=== PATIENT | female | born 1940 | race Caucasian/White ===

== ENCOUNTER 2017-04-05 11:25 | Inpatient (IN) ==
--- NOTE | 2017-04-05 13:10 | Emergency Department Note ---
Disposition Clinical Impression: Fall Qualifiers: Encounter type: initial encounter Qualified Code(s): W19.XXXA - Unspecified fall, initial encounter Closed head injury Qualifiers: Encounter type: initial encounter Qualified Code(s): S09.90XA - Unspecified injury of head, initial encounter Shoulder fracture, right Qualifiers: Encounter type: initial encounter Fracture type: closed Qualified Code(s): S42.91XA - Fracture of right shoulder girdle, part unspecified, initial encounter for closed fracture Patella fracture Qualifiers: Encounter type: initial encounter Fracture type: closed Fracture morphology: comminuted Fracture alignment: displaced Laterality: right Qualified Code(s): S82.041A - Displaced comminuted fracture of right patella, initial encounter for closed fracture Disposition: Admitted As Inpatient Condition: Fair Forms: ED Satisfaction Letter Time of Disposition: 15:23 General Adult HPI - General Chief complaint: ED Extremity Injury, Upper Stated complaint: R arm pain Time Seen by Provider: 04/05/17 12:37 Source: patient, EMS Mode of arrival: ambulatory Limitations: no limitations Nursing Notes Reviewed: Yes Vital Signs Reviewed: Yes - History of Present Illness HPI Narrative: 76-year-old female presents emergency room after falling while getting out of her car today. Patient was walking on the property at the hospital in the lower own feet falling sideways hitting her right knee and right hip rotation. She has pain in those areas at this time. She also had her head denies a loss of consciousness and is not on any blood thinners. No other preceding her prodromal symptoms noted at this point. Patient is otherwise stable on presentation. 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 Location: head, right, upper extremity, lower extremity Radiation: non-radiation Pain Severity: moderate Pain Scale: 5 Quality: aching Consistency: constant Improves with: rest Worsens with: movement Associated symptoms: Reports: denies other symptoms Treatments Prior to Arrival: none - Related Data Home Medications Medication Instructions Recorded Confirmed Meloxicam [Mobic] 7.5 mg PO BID 09/04/15 09/04/15 Atorvastatin [Lipitor] 40 mg PO HS 04/05/17 04/05/17 BuPROPion [Wellbutrin] 75 mg PO BID 04/05/17 04/05/17 Metoprolol [Lopressor] 50 mg PO BID 04/05/17 04/05/17 Sertraline [Zoloft] 100 mg PO DAILY 04/05/17 04/05/17 Allergies Allergy/AdvReac Type Severity Reaction Status Date / Time No Known Allergies Allergy Verified 01/04/15 11:28 All systems ED: reviewed and negative except as stated. Review of Systems: As Per HPI Constitutional: Denies: fever, chills Cardiovascular: Denies: chest pain, palpitations, dyspnea on exertion Respiratory: Denies: dyspnea, wheezes Gastrointestinal: Denies: nausea, vomiting, diarrhea Genitourinary: Denies: urgency, dysuria, frequency Musculoskeletal: Denies: back pain, neck pain Neurological: Denies: headache Endocrine: Denies: fatigue Past Medical History - Past Medical History Attestation: Yes The following information was validated with the patient. Source: patient Medical history: Reports: cancer, CVA, hypertension, migraine Surgical history: Reports: breast surgery (Right mastectomy with right axillary node dissection in 2000), orthopedic, other (Right wrist), thyroidectomy ( Thyroid tumor removed) Psychiatric history: Reports: depression - Social History Smoking Status: Never smoker Smokeless Tobacco Status: No Alcohol use: Reports: none Drug use: Reports: none Physical Exam - General Limitations: no limitations General appearance: alert, in no apparent distress - Head Head exam: normocephalic, normal inspection - Eye Eye exam: Present: PERRL, EOMI, periorbital swelling. Absent: scleral icterus, conjunctival injection, nystagmus, miosis, mydriasis, periorbital tenderness - ENT ENT exam: normal exam, normal oropharynx, mucous membranes moist - Neck Neck exam: Present: normal inspection, full ROM, trachea midline - Chest Chest inspection: Present: normal inspection, symmetric chest wall rise. Absent : tenderness - Respiratory Respiratory exam: Present: normal lung sounds bilaterally - Cardiovascular Cardiovascular exam: Present: regular rate, normal rhythm, normal heart sounds - Abdominal Exam Abdominal exam: Present: soft, Non-Tender. Absent: tenderness, distention, guarding, rebound, rigidity, Walton's sign, Rovsing's sign, tenderness at McBurney's Point - Extremities Exam Extremities exam: Present: normal inspection, full ROM, normal capillary refill. Absent: tenderness - Back Exam Back exam: Present: normal inspection, full ROM. Absent: tenderness - Neurological Exam Neurological exam: Present: alert, oriented X3, CN II-XII intact, normal gait - Skin Skin exam: Present: warm, dry, intact, normal color Course Course Narrative: Patient seen and examined the time of arrival. See history of present illness. 76-year-old female presents with a mechanical fall. She was walking from her car to the cancer Center at the hospital parking lot tones. Patient tripped over a curb and fell sideways hitting her right knee her right hip her right elbow and right shoulder. She also hit the right side of her head. Currently she does not take any blood thinners. Denies any loss of consciousness. She does not have any pain in the cervical thoracic or lumbar spine. Just range of motion the left upper extremity and left lower extremities. She has pain with movement of the right knee otherwise she has full range of motion of the ankle and no palpable pain with palpation of the hip and pelvis. Her lungs are clear heart is regular. Abdomen is soft no guarding or rigidity. Pelvis is stable. He does have swelling but no gross deformity. She has normal neural motor function distally. Pulses are intact. Patient also has what appears to be tenderness over the right shoulder and elbow. The forearm and wrist do not appear to be involved. She has normal function of the fingers and normal sensation and good capillary refill. Imaging of the head and cervical spine view ordered by CT scan. Pain medication to be provided by mouth as needed. Patient will have her tetanus updated. She will also have plain films of the chest and pelvis along with the right shoulder and right elbow and right knee. Patient is interested in speaking full sentences. Disposition pending treatment course - Reevaluation(s) Reevaluation #1: Patient found to have a subcapital her right humerus fracture along with a patella fracture. No other visible signs of traumatic individual scans imaging. Pancreas orthopedics consult at this time Time: 15:21 Reevaluation #2: Patient discussed with the hospitalist. No other concerns or issues noted. Patient will be admitted for definitive management Time: 17:33 Vital Signs Temperature 97.7 F 04/05/17 11:27 Pulse Rate 52 04/05/17 11:27 Respiratory Rate 17 04/05/17 11:27 Blood Pressure 163/74 04/05/17 11:27 O2 Sat by Pulse Oximetry 95 04/05/17 11:27 Temperature 97.7 F 04/05/17 11:27 Pulse Rate 52 04/05/17 17:25 Respiratory Rate 18 04/05/17 17:25 Blood Pressure 148/70 04/05/17 17:25 O2 Sat by Pulse Oximetry 99 04/05/17 17:25 Oxygen Delivery Oxygen Delivery Room Air Medical Decision Making - MDM Narrative Medical decision making narrative: Mechanical fall, right shoulder injury, closed head injury, knee pain - Medical Records Medical records reviewed: Yes I reviewed the patient's medical records. - Lab Data Lab results reviewed: Yes I reviewed the patient's lab results. Result diagrams: 04/05/17 15:51 04/05/17 15:32 Lab Results 04/05/17 04/05/17 04/05/17 Range/Units 15:32 15:32 15:51 WBC 9.9 (4.3-11.1) K/mcL RBC 4.53 (3.82-4.97) M/mcL Hgb 12.7 (11.5-15.4) g/dL Hct 40.0 (35.3-44.9) % MCV 88.3 (83.0-100.0) fL MCH 28.0 (28.0-33.3) pg MCHC 31.8 (31.6-35.5) g/dL RDW 14.7 H (11.5-14.5) % Plt Count 119 L (140-400) K/mcL MPV 12.5 H (9.4-12.4) fL Immature Gran % 0.2 (0-4) % Seg Neutrophils % 79.0 % Lymphocytes % 14.0 % Monocytes % 5.5 % Eosinophils % 1.1 % Basophils % 0.2 % Neutrophils # 7.8 (1.6-8.9) K/mcL Lymphocytes # 1.4 (0.6-4.6) K/mcL Monocytes # 0.5 (0.0-1.3) K/mcL Eosinophils # 0.1 (0.0-0.6) K/mcL Basophils # 0.0 (0.0-0.2) K/mcL PT 10.4 (9.4-12.1) Seconds INR 1.0 APTT 18.5 L (26.0-36.0) Seconds Sodium 139 (136-145) mEq/L Potassium 3.8 (3.5-5.1) mEq/L Chloride 109 H (98-107) mEq/L Carbon Dioxide 22 L (23-29) mEq/L BUN 23 (8-23) mg/dL Creatinine 0.63 (0.60-1.20) mg/dL Est GFR ( Amer) > 60 (> 60) Est GFR (Non-Af Amer) > 60 (> 60) BUN/Creatinine Ratio 37 H (6-26) Glucose 122 H (70-105) mg/dL Calculated Osmolality 293 (280-300) Calcium 8.9 (8.6-10.3) mg/dL - Radiology Data Radiology results reviewed: Yes I reviewed the patient's radiology results. X-rays confirm shoulder fracture and right knee patella fracture
[2017-04-05] MEDS ORDERED: *HR* HYDROcodone/Acet 5/325 mg TABLET PO ONE (13:29)
[2017-04-05] MEDS ORDERED: Tdap (Boostrix) Vaccine 0.5 ML SYRINGE IM ONE (13:29)
[2017-04-05 15:43] LABS: Prothrombin Time 10.4 Seconds (9.4-12.1)
[2017-04-05] MEDS ORDERED: 0.9 % Sodium Chloride 1,000 ML IVC SCH ×2 (15:45→17:30)
[2017-04-05 15:46] LABS: Activated Partial Thrombo Time 18.5 Seconds (26.0-36.0)
[2017-04-05 15:52] LABS: Calcium 8.9 mg/dL (8.6-10.3); Carbon Dioxide 22 mEq/L (23-29); Chloride 109 mEq/L (98-107); Potassium 3.8 mEq/L (3.5-5.1); Sodium 139 mEq/L (136-145)
[2017-04-05 15:58] LABS: BUN/Creatinine Ratio 37 (6-26); Blood Urea Nitrogen 23 mg/dL (8-23); Glucose 122 mg/dL (70-105); Osmolality,Calculated 293 (280-300); eGFR For African Americans > 60 (> 60); eGFR For Non-African Americans > 60 (> 60)
[2017-04-05 16:14] LABS: Basophils % 0.2 %; Eosinophils # 0.1 K/mcL (0.0-0.6); Eosinophils % 1.1 %; Hemoglobin 12.7 g/dL (11.5-15.4); Immature Granulocytes % 0.2 % (0-4); Lymphocytes # 1.4 K/mcL (0.6-4.6); Mean Corpuscular HGB Conc 31.8 g/dL (31.6-35.5); Mean Corpuscular Volume 88.3 fL (83.0-100.0); Mean Platelet Volume 12.5 fL (9.4-12.4); Monocytes # 0.5 K/mcL (0.0-1.3); Monocytes % 5.5 %; Neutrophils # 7.8 K/mcL (1.6-8.9); Platelet Count 119 K/mcL (140-400); Red Blood Count 4.53 M/mcL (3.82-4.97); Red Cell Distribution Width 14.7 % (11.5-14.5)
[2017-04-05] MEDS ORDERED: Naloxone 0.4 MG/ML INJ IVP PRN (17:19)
[2017-04-05] MEDS ORDERED: Ondansetron 4 MG/2 ML VIAL IVP PRN (17:19)
[2017-04-05] MEDS ORDERED: Acetaminophen 325 MG TABLET PO PRN (17:19)
--- NOTE | 2017-04-05 17:22 | Internal Med History&Physical ---
Date of Encounter: 04/05/17 Time of Encounter: 17:54 Assessment and Plan (1) Proximal humeral fracture Current visit: Yes Status: Acute Orthopedic eval Pain control PTOT eval for recurrent falls after ortho eval NPO from [place] for possible surgery Hold BP medication in the a.m of surgery Hold NSAIDS IVF at 75cc/hr Type and Screen ordered Patient is low to intermediate risk for low risk procedure No indication for EKG, recent ECHO said to be normal, patient has no cardiac history per family History of delirium to anesthesia in the past Fall precautions Qualifiers: Encounter type: initial encounter Fracture type: closed Fracture morphology: unspecified fracture morphology Laterality: right Qualified Code (s): S42.201A - Unspecified fracture of upper end of right humerus, initial encounter for closed fracture (2) HTN (hypertension) Current visit: Yes Status: Chronic Continue home meds, hold a.m med for surgery Qualifiers: Hypertension type: essential hypertension Qualified Code(s): I10 - Essential (primary) hypertension (3) HLD (hyperlipidemia) Current visit: Yes Status: Chronic Continue home meds Qualifiers: Hyperlipidemia type: unspecified Qualified Code(s): E78.5 - Hyperlipidemia , unspecified (4) Fall Current visit: Yes Status: Acute Per daughter, recurrent falls in the past year PTOT eval after surgery eval Fall precautions Qualifiers: Encounter type: initial encounter Qualified Code(s): W19.XXXA - Unspecified fall, initial encounter (5) Patella fracture Current visit: Yes Status: Acute Per orthopedics Qualifiers: Encounter type: initial encounter Fracture type: closed Fracture morphology: unspecified fracture morphology Fracture alignment: displaced Laterality: right Qualified Code(s): S82.001A - Unspecified fracture of right patella, initial encounter for closed fracture (6) Closed head injury Current visit: Yes Status: Acute Frontal scalp hematoma No loss of consciousness Head CT noted for chronic microvascular changes Continue to monitor Qualifiers: Encounter type: initial encounter Qualified Code(s): S09.90XA - Unspecified injury of head, initial encounter Internal Medicine - H&P: HPI Chief complaint: Fall Admitted From: Home Plans for Post Hospital Care: Home History of present illness: Ms. Milian is a 76 year old female with PMH of CVA several years ago with some weakness on the Right side, HTN, HLD She was in her usual state of health till earlier today when she had a mechanical fall while walking on a flat surfcae, she hit the pavement and hit her head and right side of the body. She denied any preceding symptoms, she deneis chest pain, dizziness, palpitations, confusion , lightheadedness prior to fall She has been having issues with balance since her CVA and is not really physically active. She goes on the treadmill for abut 5 mins daily when she deems fit. She has no lung disease, never smoked, she has no shortness of breath at baseline rest or exertion, she has no leg swelling She has no abdominal symptoms She also hit her head during the fall, no loss of consciousness, she did sustain frontal hematoma. Per patient's daughter, she had an ECHO done recently by her PCP to evaluate a murmur, and they were told it was "normal" Work up in the ER showed R patellar fracture and R communited, impacted/ displaced proximal humeral fracture Patient will be admitted to the hospital for orthopedics review, pain control Should it be deemed that she needs surgery, she is low to intermediate risk for a low risk surgical procedure She has a history of delirium for 2-3 days after her back surgery on September 2016, resolved with time. No reactions to anesthesia. No significant past medical history Past Med Surg Social Fam HX - Past Medical History Medical history: cancer, CVA, hypertension, migraine Psychiatric history: depression - Past Surgical History Surgical History: breast surgery (Right mastectomy with right axillary node dissection in 2000), orthopedic, other (Right wrist), thyroidectomy (Thyroid tumor removed) - Social History Smoking Status: Never smoker Smokeless Tobacco Status: No Alcohol use: none Drug use: none Internal Medicine - H&P: Meds Meloxicam [Mobic] 7.5 mg PO Q12H PRN 09/04/15 [History] Atorvastatin [Lipitor] 40 mg PO HS 04/05/17 [History] BuPROPion [Wellbutrin] 75 mg PO BID 04/05/17 [History] Metoprolol [Lopressor] 50 mg PO BID 04/05/17 [History] Sertraline [Zoloft] 100 mg PO DAILY 04/05/17 [History] 3 Allergy/AdvReac Type Severity Reaction Status Date / Time No Known Allergies Allergy Verified 01/04/15 11:28 All Systems PM: A 10-system review of systems was performed and is negative for pertinent findings except as documented above in the HPI. - Constitutional Constitutional: no chills, no fever(s), no night sweats - EENT Eyes: no change in vision, no discharge, no pain, no photophobia Ears: decreased hearing, no ear discharge, no ear pain, no tinnitus Nose, mouth and throat: no dysphagia, no nasal discharge, no neck pain, no sore throat - Cardiovascular Cardiovascular ROS IM: no chest pain, no diaphoresis, no dyspnea, no lightheadedness, no palpitations, no syncope - Respiratory Respiratory: no cough, no dyspnea, no wheezing, no excessive phlegm production - Gastrointestinal Gastrointestinal: no abdominal pain, no diarrhea, no hematemesis, no hematochezia, no melena, no nausea, no vomiting - Genitourinary Genitourinary: urinary incontinence (chronic, wears diapers) - Musculoskeletal Musculoskeletal ROS IM: as per HPI - Integumentary Integumentary IM: as per HPI - Neurological Neurological ROS: frequent falls, no confusion, no convulsions, no focal weakness, no numbness, no tingling, no tremor(s) - Hematologic/Lymphatic Hematologic/Lymphatic: no easy bruising - Constitutional Vitals: Temp Pulse Resp BP Pulse Ox 97.7 F 52 17 163/74 95 04/05/17 11:27 04/05/17 11:27 04/05/17 11:27 04/05/17 11:27 04/05/17 11:27 General appearance: Present: A&O X 3, pleasant, no acute distress - Head Head exam: Present: normocephalic Additional comments: Frontal hematoma, R ight, some bruises on the forehead - Eye Eye exam: Present: PERRL, conjuntiva pink, sclera anicteric Pupils: Present: PERRL - Neck Neck exam general surgery: Present: supple, trachea midline. Absent: lymphadenopathy - Respiratory Respiratory exam: Present: CTAB. Absent: accessory muscle use, rales, rhonchi, wheezes - Cardiovascular Cardiovascular exam: Present: RRR, +S1, +S2. Absent: diastolic murmur, gallop, rubs, systolic murmur - GI/Abdominal GI/Abdominal exam: Present: normal bowel sounds, soft, no peritoneal signs. Absent: distended, tenderness - Extremities Exam Extremities exam: Present: warm, radial pulses palpable and symmetrical. Absent : calf tenderness, cyanotic, pedal edema Additional comments: R arm in sling, neurovascularly intact distally. - Neurological Exam Neurological exam: Present: alert, CN II-XII intact, oriented X3, no focal deficits. Absent: pronater drift, facial droop, speech deficit - Skin Skin exam: Present: dry, excoriation Internal Med - H&P Results - Labs CBC & Chem 7: 04/05/17 15:51 04/05/17 15:32 Labs: Short CBC 04/05/17 Range/Units 15:51 WBC 9.9 (4.3-11.1) K/mcL Hgb 12.7 (11.5-15.4) g/dL Hct 40.0 (35.3-44.9) % Plt Count 119 L (140-400) K/mcL Neutrophils # 7.8 (1.6-8.9) K/mcL BMP 04/05/17 15:32 Sodium 139 Potassium 3.8 Chloride 109 H Carbon Dioxide 22 L BUN 23 Creatinine 0.63 Glucose 122 H Calcium 8.9 - Impressions ITS Impressions Cervical Spine CT 04/05/17 12:55 IMPRESSION: No acute abnormality of the cervical spine. D/ / 04/05/2017 15:18:21 Cedric Leblanc MD / [facility] Interpreting Provider: Cedric Leblanc MD Chest X-Ray 04/05/17 12:55 IMPRESSION: Right proximal humerus fracture. No acute cardiopulmonary abnormality. D/ / 04/05/2017 15:03:59 Dmitriy Latham MD / [facility] Interpreting Provider: Dmitriy Latham MD Head CT 04/05/17 12:55 IMPRESSION: No acute intracranial abnormality. Diffuse atrophic changes with findings suggesting chronic microvascular ischemia D/ / Douglas Ren MD / Douglas eRn MD Interpreting Provider: Douglas Ren MD Pelvis X-Ray 04/05/17 12:56 IMPRESSION: No acute fracture D/ / Latasha Sneed MD / Latasha Sneed MD Interpreting Provider: Latasha Sneed MD Shoulder X-Ray 04/05/17 12:56 IMPRESSION: Proximal humeral fractures above. Humeral head appears displaced inferiorly in relation to the glenoid on scapular Y-view. D/ / Latasha Sneed MD / Latasha Sneed MD Interpreting Provider: Latasha Sneed MD Elbow X-Ray 04/05/17 12:57 IMPRESSION: No acute findings D/ / Latasha nSeed MD / Latasha Sneed MD Interpreting Provider: Latasha Sneed MD Knee X-Ray 04/05/17 12:57 IMPRESSION: Patellar fracture. Small joint effusion. D/ / Latasha Sneed MD / Latasha Sneed MD Interpreting Provider: Latasha Sneed MD
[2017-04-05] MEDS: *HR* HYDROcodone/Acet 5/325 mg TABLET PO PRN (18:26)
--- NOTE | 2017-04-05 19:45 | Orthopedic Consult Note ---
Date of Encounter: 04/05/17 Time of Encounter: 19:34 History of Present Illness Chief complaint: Right shoulder and right knee pain HPI: Ms. Milain is a 76 year old female sustained injuries to her right shoulder and her right knee in a fall earlier. She states that she is unsure the exact mechanism but somehow she was outdoors she fell striking her knee and her shoulder. She had immediate pain and was able to ambulate. She presented to the emergency room and [facility] where x-rays revealed both a right proximal humerus fracture as well as a right patella fracture. Patient states that her knee has been problematic for a significant period of time. She had fallen directly onto her knee probably year and a half ago. She states that her knee has been really problematic ever since she had a stroke roughly 2 years ago. She denies any dizziness blackouts etc. prior to this fall. Pertinent orthopedic examination reveals the right shoulder to be tender to palpation with evolving edema but no gross ecchymosis. Right knee shows an abrasion over the anterior knee. She is quite tender to palpation over the anterior patella. The knee is in a long knee immobilizer. I reviewed multiple x-rays. X-rays of the pelvis show some arthritic changes in both hips but no evidence of the hip nor pelvic fracture. X-rays of the right knee reveal a relatively transverse nondisplaced fracture of the patella. There is quite significant arthritis with bone to bone contact in the medial compartment with a varus knee deformity. X-rays of the right elbow were reviewed. These do not reveal any acute fractures. X-rays of the shoulder revealed the patient to have a minimally displaced but impacted and overall well aligned proximal humerus fracture. Degenerative changes at the acromioclavicular joint. Impression: #1. Acute right proximal humerus fracture #2.Acute right patella fracture (nondisplaced) #3.Chronic severe osteoarthritis right knee Recommendation: Both of these fractures are in excellent alignment and do not require any surgical intervention. I would recommend a knee immobilizer as currently in use and the patient can begin weightbearing as tolerated on the right lower extremity. The unfortunate thing is that the right humerus fracture likewise does not require surgical intervention but will not allow her to put weight across the shoulder varus eliminating her ability to use a walker with the right arm. She may be able to use a Hemiwalker with the left hand.Recommend obtaining both physical therapy and occupational therapy consults to begin mobilization. We will also have social science analyst evaluate the patient for discharge needs. Would utilizethe VTE prophylaxis. Pain management as necessary. Thank you very much for allowing me to see and care for Mrs. Milian. Sincerely, Ciaran Tuttle,DO Past Med Surg Social Fam HX - Past Medical History Medical history: cancer, CVA, hypertension, migraine Psychiatric history: depression - Past Surgical History Surgical History: breast surgery, orthopedic, other, thyroidectomy - Social History Smoking Status: Never smoker Smokeless Tobacco Status: No Alcohol use: none Drug use: none - Family History Daughter Hx Family Endocrine Disorder: Yes Medications and Allergies Meloxicam [Mobic] 7.5 mg PO Q12H PRN 09/04/15 [History] Atorvastatin [Lipitor] 40 mg PO HS 04/05/17 [History] BuPROPion [Wellbutrin] 75 mg PO BID 04/05/17 [History] Metoprolol [Lopressor] 50 mg PO BID 04/05/17 [History] Sertraline [Zoloft] 100 mg PO DAILY 04/05/17 [History] 3 Allergy/AdvReac Type Severity Reaction Status Date / Time No Known Allergies Allergy Verified 01/04/15 11:28 All Systems Reviewed: A 10-system review of systems was performed and is negative for pertinent findings except as documented above in the HPI. Physical Exam - Constitutional Vitals: Temp Pulse Resp BP Pulse Ox 99.0 F 63 16 155/76 94 04/05/17 18:23 04/05/17 18:23 04/05/17 18:23 04/05/17 18:23 04/05/17 18:23 Results - Labs Result Diagrams: 04/05/17 15:51 04/05/17 15:32 Labs: Abnormal lab results RDW 14.7 % (11.5-14.5) H 04/05/17 15:51 Plt Count 119 K/mcL (140-400) L 04/05/17 15:51 MPV 12.5 fL (9.4-12.4) H 04/05/17 15:51 APTT 18.5 Seconds (26.0-36.0) L 04/05/17 15:32 Chloride 109 mEq/L (98-107) H 04/05/17 15:32 Carbon Dioxide 22 mEq/L (23-29) L 04/05/17 15:32 BUN/Creatinine Ratio 37 (6-26) H 04/05/17 15:32 Glucose 122 mg/dL (70-105) H 04/05/17 15:32 All other labs normal. - Diagnostic results Shoulder x-ray: image reviewed Elbow x-ray: image reviewed Pelvic AP x-ray: image reviewed Knee x-ray: image reviewed Consult Discharge Plan - Plan Referrals: NONE,PCP [Primary Care Provider] -
[2017-04-06] MEDS: *HR* Morphine 2 MG/ML SYRINGE IVP PRN (02:56)
[2017-04-06] MEDS: *HR* Enoxaparin 40 MG/0.4 ML SYRINGE SQ SCH (05:11)
[2017-04-06 06:54] LABS: Basophils % 0.1 %; Eosinophils # 0.1 K/mcL (0.0-0.6); Eosinophils % 1.4 %; Hematocrit 37.2 % (35.3-44.9); Hemoglobin 11.7 g/dL (11.5-15.4); Immature Granulocytes % 0.3 % (0-4); Lymphocytes # 1.1 K/mcL (0.6-4.6); Lymphocytes % 11.7 %; Mean Corpuscular HGB Conc 31.5 g/dL (31.6-35.5); Mean Corpuscular Hemoglobin 27.7 pg (28.0-33.3); Mean Corpuscular Volume 87.9 fL (83.0-100.0); Mean Platelet Volume 13.3 fL (9.4-12.4); Monocytes # 0.4 K/mcL (0.0-1.3); Monocytes % 4.6 %; Neutrophils # 7.5 K/mcL (1.6-8.9); Platelet Count 118 K/mcL (140-400); Red Blood Count 4.23 M/mcL (3.82-4.97); Red Cell Distribution Width 14.8 % (11.5-14.5); Segmented Neutrophils % 81.9 %
[2017-04-06 07:20] LABS: BUN/Creatinine Ratio 28 (6-26); Blood Urea Nitrogen 17 mg/dL (8-23); Calcium 8.6 mg/dL (8.6-10.3); Carbon Dioxide 24 mEq/L (23-29); Chloride 109 mEq/L (98-107); Glucose 141 mg/dL (70-105); Osmolality,Calculated 292 (280-300); Potassium 3.5 mEq/L (3.5-5.1); Sodium 139 mEq/L (136-145); eGFR For African Americans > 60 (> 60); eGFR For Non-African Americans > 60 (> 60)
--- NOTE | 2017-04-06 08:23 | Electrocardiograph Report ---
[address] [address] Test Date: 2017-04-05 Pat Name: Tracee Milian Department: 104 Room: [facility] Gender: F [employer] Operator: MIA : [id number] Requested By: Rainer Kyle Order Number: [id number] Reading MD: Shari Esposito Measurements Intervals [place] Rate: 55 P: 44 AL: 165 QRS: 4 QRSD: 98 T: -2 QT: 435 QTc: 424 Interpretive Statements SINUS BRADYCARDIA MODERATE VOLTAGE CRITERIA FOR LVH, CONSIDER NORMAL VARIANT Electronically Signed On 04-06-2017 8:21:50 EST by Shari Esposito
[2017-04-06] MEDS: *HR* HYDROcodone/Acet 5/325 mg TABLET PO PRN ×2 (09:11→18:29)
--- NOTE | 2017-04-06 10:48 | Internal Med Progress Note ---
Date of Encounter: 04/06/17 Time of Encounter: 09:00 - Assessment and plan (1) Closed head injury Current Visit: Yes Status: Acute Assessment and plan: CT head and neck neg for acute pathology, monitor Qualifiers: Encounter type: initial encounter Qualified Code(s): S09.90XA - Unspecified injury of head, initial encounter (2) Fall Current Visit: Yes Status: Acute Assessment and plan: Mechanical likely due to weakness PT/OT, MORA placement likely Qualifiers: Encounter type: initial encounter Qualified Code(s): W19.XXXA - Unspecified fall, initial encounter (3) Patella fracture Current Visit: Yes Status: Acute Assessment and plan: Conservative management as recc by ortho Qualifiers: Encounter type: initial encounter Fracture type: closed Fracture morphology: unspecified fracture morphology Fracture alignment: displaced Laterality: right Qualified Code(s): S82.001A - Unspecified fracture of right patella, initial encounter for closed fracture (4) Proximal humeral fracture Current Visit: Yes Status: Acute Assessment and plan: Conserv management as per ortho Qualifiers: Encounter type: initial encounter Fracture type: closed Fracture morphology: unspecified fracture morphology Laterality: right Qualified Code (s): S42.201A - Unspecified fracture of upper end of right humerus, initial encounter for closed fracture (5) Shoulder fracture, right Current Visit: Yes Status: Acute Assessment and plan: Conserv management as per ortho Qualifiers: Encounter type: initial encounter Fracture type: closed Qualified Code(s) : S42.91XA - Fracture of right shoulder girdle, part unspecified, initial encounter for closed fracture (6) HLD (hyperlipidemia) Current Visit: Yes Status: Chronic Qualifiers: Hyperlipidemia type: unspecified Qualified Code(s): E78.5 - Hyperlipidemia , unspecified (7) HTN (hypertension) Current Visit: Yes Status: Chronic Assessment and plan: Good control Qualifiers: Hypertension type: essential hypertension Qualified Code(s): I10 - Essential (primary) hypertension (8) Fever Current Visit: Yes Status: Acute Assessment and plan: Low grade, pt nontoxic. WBC nml. CXR NAPD. May be due to injuries. Will check UA. Qualifiers: Fever type: unspecified Qualified Code(s): R50.9 - Fever, unspecified - Subjective Interval history: Ms. Milian is a 76 year old female with PMH of CVA several years ago with some weakness on the Right side, HTN, HLD She was in her usual state of health till earlier today when she had a mechanical fall while walking on a flat surfcae, she hit the pavement and hit her head and right side of the body. She denied any preceding symptoms, she deneis chest pain, dizziness, palpitations, confusion , lightheadedness prior to fall She has been having issues with balance since her CVA and is not really physically active. She goes on the treadmill for abut 5 mins daily when she deems fit. She has no lung disease, never smoked, she has no shortness of breath at baseline rest or exertion, she has no leg swelling She has no abdominal symptoms She also hit her head during the fall, no loss of consciousness, she did sustain frontal hematoma. Per patient's daughter, she had an ECHO done recently by her PCP to evaluate a murmur, and they were told it was "normal" Work up in the ER showed R patellar fracture and R communited, impacted/ displaced proximal humeral fracture Patient will be admitted to the hospital for orthopedics review, pain control Should it be deemed that she needs surgery, she is low to intermediate risk for a low risk surgical procedure She has a history of delirium for 2-3 days after her back surgery on September 2016, resolved with time. No reactions to anesthesia. No significant past medical history 04/06/16: Patient complains of pain in both knees. Right arm pain is improved. He has a right arm immobilizer on. She denies any chest pain or shortness of breath. No nausea, vomiting, diarrhea. Low grade temp this am. No urinary c/ o. He was seen by surgery who felt that her injuries were nonoperative. We are currently looking towards a rehabilitation facility placement. - Constitutional Vitals: Temp Pulse Resp BP Pulse Ox 98.2 F 64 16 126/70 94 04/06/17 06:43 04/06/17 06:43 04/06/17 06:43 04/06/17 06:43 04/06/17 06:43 General appearance: Present: A&O X 3, pleasant, no acute distress - Head Head exam: Present: normocephalic Additional comments: Frontal scalp ecchymosis - Extremities Exam Extremities exam: Present: warm, radial pulses palpable and symmetrical. Absent : calf tenderness (Right UE in immobilizer), cyanotic, pedal edema Internal Medicine: Result - Labs CBC & Chem 7: 04/06/17 06:16 04/06/17 06:16 Labs: Short CBC 04/06/17 Range/Units 06:16 WBC 9.1 (4.3-11.1) K/mcL Hgb 11.7 (11.5-15.4) g/dL Hct 37.2 (35.3-44.9) % Plt Count 118 L (140-400) K/mcL Neutrophils # 7.5 (1.6-8.9) K/mcL BMP 04/06/17 06:16 Sodium 139 Potassium 3.5 Chloride 109 H Carbon Dioxide 24 BUN 17 Creatinine 0.60 Glucose 141 H Calcium 8.6 - ABG Interpretation ABG results: PT/INR, D-dimer PT 10.4 Seconds (9.4-12.1) 04/05/17 15:32 - VTE Documentation of Mechanical Device: Venous foot pump, device Consult Discharge Plan - Plan Referrals: NONE,PCP [Primary Care Provider] -
[2017-04-06 11:33] LABS: Bilirubin,Urine Negative (Negative); Blood,Urine Negative (Negative); Clarity,Urine Cloudy (Clear); Color,Urine Dark Yellow (Yellow); Glucose,Urine (UA) Normal (Normal); Ketones,Urine Negative (Negative); Leukocyte Esterase,Urine Large (Negative); Nitrite,Urine Positive (Negative); Protein,Urine 100 mg/dL (Neg-Trace); Specific Gravity,Urine 1.024 (1.010-1.025); Urobilinogen,Urine Normal (Normal)
[2017-04-06 11:35] LABS: Bacteria,Urine Many per hpf (None-Few); Hyaline Casts,Urine Few per lpf (None-Few); Squamous Epithelial Cell,Urine Moderate per lpf (None-Few); WBC,Urine TNTC per hpf (0-3)
[2017-04-06] MEDS: Sennosides/Docusate Sodium TABLET PO SCH ×2 (11:55→21:40)
[2017-04-07] MEDS: *HR* Enoxaparin 40 MG/0.4 ML SYRINGE SQ SCH (06:23)
[2017-04-07] MEDS: *HR* Morphine 2 MG/ML SYRINGE IVP PRN (06:52)
[2017-04-07] MEDS: *HR* HYDROcodone/Acet 5/325 mg TABLET PO PRN ×2 (09:41→17:07)
[2017-04-07] MEDS: Sennosides/Docusate Sodium TABLET PO SCH (09:42)
--- NOTE | 2017-04-07 09:47 | Internal Med Progress Note ---
Date of Encounter: 04/07/17 Time of Encounter: 09:15 - Assessment and plan (1) Closed head injury Current Visit: Yes Status: Acute Assessment and plan: CT head and neck neg for acute pathology, monitor Qualifiers: Encounter type: initial encounter Qualified Code(s): S09.90XA - Unspecified injury of head, initial encounter (2) Fall Current Visit: Yes Status: Acute Assessment and plan: Mechanical likely due to weakness PT/OT, MORA placement on Tuesday Qualifiers: Encounter type: initial encounter Qualified Code(s): W19.XXXA - Unspecified fall, initial encounter (3) Patella fracture Current Visit: Yes Status: Acute Assessment and plan: Conservative management as recc by ortho Qualifiers: Encounter type: initial encounter Fracture type: closed Fracture morphology: unspecified fracture morphology Fracture alignment: displaced Laterality: right Qualified Code(s): S82.001A - Unspecified fracture of right patella, initial encounter for closed fracture (4) Proximal humeral fracture Current Visit: Yes Status: Acute Assessment and plan: Conserv management as per ortho Qualifiers: Encounter type: initial encounter Fracture type: closed Fracture morphology: unspecified fracture morphology Laterality: right Qualified Code (s): S42.201A - Unspecified fracture of upper end of right humerus, initial encounter for closed fracture (5) Shoulder fracture, right Current Visit: Yes Status: Acute Assessment and plan: Conserv management as per ortho Qualifiers: Encounter type: initial encounter Fracture type: closed Qualified Code(s) : S42.91XA - Fracture of right shoulder girdle, part unspecified, initial encounter for closed fracture (6) HLD (hyperlipidemia) Current Visit: Yes Status: Chronic Qualifiers: Hyperlipidemia type: unspecified Qualified Code(s): E78.5 - Hyperlipidemia , unspecified (7) HTN (hypertension) Current Visit: Yes Status: Chronic Assessment and plan: Good control Qualifiers: Hypertension type: essential hypertension Qualified Code(s): I10 - Essential (primary) hypertension (8) Fever Current Visit: Yes Status: Acute Assessment and plan: Low grade, pt nontoxic. WBC nml. CXR NAPD. May be due to injuries. Will check UA. 04/07: Urine was dirty but she had a Ayers catheter in at the time which has now been removed. He has no further fever. No white blood cell count elevation. No urinary complaints. Will not give antibiotics at this time and follow clinically. Qualifiers: Fever type: unspecified Qualified Code(s): R50.9 - Fever, unspecified - Subjective Interval history: Ms. Milian is a 76 year old female with PMH of CVA several years ago with some weakness on the Right side, HTN, HLD She was in her usual state of health till earlier today when she had a mechanical fall while walking on a flat surfcae, she hit the pavement and hit her head and right side of the body. She denied any preceding symptoms, she deneis chest pain, dizziness, palpitations, confusion , lightheadedness prior to fall She has been having issues with balance since her CVA and is not really physically active. She goes on the treadmill for abut 5 mins daily when she deems fit. She has no lung disease, never smoked, she has no shortness of breath at baseline rest or exertion, she has no leg swelling She has no abdominal symptoms She also hit her head during the fall, no loss of consciousness, she did sustain frontal hematoma. Per patient's daughter, she had an ECHO done recently by her PCP to evaluate a murmur, and they were told it was "normal" Work up in the ER showed R patellar fracture and R communited, impacted/ displaced proximal humeral fracture Patient will be admitted to the hospital for orthopedics review, pain control Should it be deemed that she needs surgery, she is low to intermediate risk for a low risk surgical procedure She has a history of delirium for 2-3 days after her back surgery on September 2016, resolved with time. No reactions to anesthesia. No significant past medical history 04/06/16: Patient complains of pain in both knees. Right arm pain is improved. He has a right arm immobilizer on. She denies any chest pain or shortness of breath. No nausea, vomiting, diarrhea. Low grade temp this am. No urinary c/ o. He was seen by surgery who felt that her injuries were nonoperative. We are currently looking towards a rehabilitation facility placement. 04/07: Pain is improved medication. Patient has had no further fevers. Her Ayers catheter was removed. Urinalysis was dirty but this may have been due to a Ayers catheter. No elevated white blood cell count. No urinary complaints. We will continue to monitor for signs of urinary tract infection. She denies any chest pain or shortness of breath. No nausea, vomiting, diarrhea. No fevers or chills. - Constitutional Vitals: Temp Pulse Resp BP Pulse Ox 98.5 F 69 16 152/80 92 04/07/17 06:27 04/07/17 06:27 04/07/17 06:27 04/07/17 06:27 04/07/17 06:27 General appearance: Present: A&O X 3, pleasant, no acute distress - Head Head exam: Present: normocephalic Additional comments: Scalp ecchymoses - Respiratory Respiratory exam: Present: decreased breath sounds. Absent: accessory muscle use, rales, rhonchi, wheezes - Extremities Exam Extremities exam: Present: warm, radial pulses palpable and symmetrical. Absent : calf tenderness (Right arm and immobilizer, bilateral knees tender to palpation), cyanotic, pedal edema Internal Medicine: Result - Labs CBC & Chem 7: 04/06/17 06:16 04/06/17 06:16 Labs: Urine 04/06/17 Range/Units 11:15 Urine Color Dark Yellow (Yellow) Urine Clarity Cloudy A (Clear) Urine pH 7.0 (5.0-8.0) pH Units Ur Specific [place] 1.024 (1.010-1.025) Urine Protein 100 H (Neg-Trace) mg/dL Urine Glucose (UA) Normal (Normal) mg/dL - ABG Interpretation ABG results: PT/INR, D-dimer PT 10.4 Seconds (9.4-12.1) 04/05/17 15:32 - VTE Documentation of Mechanical Device: Venous foot pump, device Consult Discharge Plan - Plan Referrals: NONE,PCP [Primary Care Provider] -
[2017-04-08] MEDS: *HR* Morphine 2 MG/ML SYRINGE IVP PRN (02:09)
[2017-04-08] MEDS: Sennosides/Docusate Sodium TABLET PO SCH ×2 (03:19→09:36)
[2017-04-08] MEDS: *HR* HYDROcodone/Acet 5/325 mg TABLET PO PRN ×3 (05:33→14:04)
[2017-04-08] MEDS: *HR* Enoxaparin 40 MG/0.4 ML SYRINGE SQ SCH (05:33)
--- NOTE | 2017-04-08 09:08 | Discharge Summary ---
Date of Encounter: 04/08/17 Time of Encounter: 09:00 - Discharge Diagnosis (1) Closed head injury Priority: Primary Status: Acute Qualifiers: Encounter type: initial encounter Qualified Code(s): S09.90XA - Unspecified injury of head, initial encounter (2) Fall Priority: Primary Status: Acute Qualifiers: Encounter type: initial encounter Qualified Code(s): W19.XXXA - Unspecified fall, initial encounter (3) Patella fracture Priority: Primary Status: Acute Qualifiers: Encounter type: initial encounter Fracture type: closed Fracture morphology: unspecified fracture morphology Fracture alignment: displaced Laterality: right Qualified Code(s): S82.001A - Unspecified fracture of right patella, initial encounter for closed fracture (4) Proximal humeral fracture Priority: Primary Status: Acute Qualifiers: Encounter type: initial encounter Fracture type: closed Fracture morphology: unspecified fracture morphology Laterality: right Qualified Code (s): S42.201A - Unspecified fracture of upper end of right humerus, initial encounter for closed fracture (5) Shoulder fracture, right Priority: Primary Status: Acute Qualifiers: Encounter type: initial encounter Fracture type: closed Qualified Code(s) : S42.91XA - Fracture of right shoulder girdle, part unspecified, initial encounter for closed fracture (6) HLD (hyperlipidemia) Priority: Secondary Status: Chronic Qualifiers: Hyperlipidemia type: unspecified Qualified Code(s): E78.5 - Hyperlipidemia , unspecified (7) HTN (hypertension) Priority: Secondary Status: Chronic Qualifiers: Hypertension type: essential hypertension Qualified Code(s): I10 - Essential (primary) hypertension (8) Fever Priority: Secondary Status: Acute Qualifiers: Fever type: unspecified Qualified Code(s): R50.9 - Fever, unspecified (9) UTI (urinary tract infection) Priority: Secondary Status: Acute Comments: Patient is day 1 of her 3 day course of Cipro for Proteus UTI. Sensitivity still pending. Qualifiers: Urinary tract infection type: site unspecified Qualified Code(s): N39.0 - Urinary tract infection, site not specified; R31.9 - Hematuria, unspecified; R31.9 - Hematuria, unspecified - Discharge Medications Prescriptions: HYDROcodone/Acet 5/325 mg [[place] 5-325 mg] 1 tab PO Q4HR PRN #30 tablet PRN Reason: Moderate Pain (4-6) Ciprofloxacin HCl [Cipro] 500 mg PO BID 3 Days #6 tablet Home Medications: Meloxicam [Mobic] 7.5 mg PO Q12H PRN 09/04/15 [History] Atorvastatin [Lipitor] 40 mg PO HS 04/05/17 [History] BuPROPion [Wellbutrin] 75 mg PO BID 04/05/17 [History] Metoprolol [Lopressor] 50 mg PO BID 04/05/17 [History] Sertraline [Zoloft] 100 mg PO DAILY 04/05/17 [History] Acetaminophen [Tylenol] 650 mg PO Q6HR PRN tablet 04/08/17 [Rx] Ciprofloxacin HCl [Cipro] 500 mg PO BID 3 Days #6 tablet 04/08/17 [Rx] Enoxaparin [Lovenox] 40 mg SQ 0600 syringe 04/08/17 [Rx] HYDROcodone/Acet 5/325 mg [[place] 5-325 mg] 1 tab PO Q4HR PRN #30 tablet [Rx] Sennosides/Docusate Sodium [Senna Plus] 1 each PO BID tablet 04/08/17 [Rx] Allergies/Adverse Reactions: 3 Allergy/AdvReac Type Severity Reaction Status Date / Time No Known Allergies Allergy Verified 01/04/15 11:28 Date of admission: 04/05/17 17:28 Primary care physician: PCP NONE Consults: 04/05/17 18:32 Consult to Dredge Pump Operator [CONS] Routine Reason for SW Consult: DC planning 04/05/17 19:50 Consult to Occupational Therapy [CONS] Routine Comment: Evaluate, develop and implement POC Reason for Consult: ADLs, R Proximal Humerus Fx Consult to Physical Therapy [CONS] Routine Comment: Evaluate, develop and implement POC Reason for Consult: R Patella Fx Discharging clinician: Eugenio Leavitt Anticipated date of discharge: 04/08/17 - Patient Status Disposition: Transfer SNF Condition: Fair Functional capacity at discharge: independent ambulation Overall status at discharge: patient is not back to baseline - Discharge Instructions Follow Up With: NONE,PCP [Primary Care Provider] - Forms: ED Satisfaction Letter Additional Instructions: Follow-up with orthopedic surgery as recommended Kidney with Lovenox for DVT prophylaxis for at least 2 weeks. CBC and BMP in 3-4 days. - Diet and Activity Activity: as per physical therapy, increase activity as tolerated Interval History: Ms. Milian is a 76 year old female with PMH of CVA several years ago with some weakness on the Right side, HTN, HLD She was in her usual state of health till earlier today when she had a mechanical fall while walking on a flat surfcae, she hit the pavement and hit her head and right side of the body. She denied any preceding symptoms, she deneis chest pain, dizziness, palpitations, confusion , lightheadedness prior to fall She has been having issues with balance since her CVA and is not really physically active. She goes on the treadmill for abut 5 mins daily when she deems fit. She has no lung disease, never smoked, she has no shortness of breath at baseline rest or exertion, she has no leg swelling She has no abdominal symptoms She also hit her head during the fall, no loss of consciousness, she did sustain frontal hematoma. Per patient's daughter, she had an ECHO done recently by her PCP to evaluate a murmur, and they were told it was "normal" Work up in the ER showed R patellar fracture and R communited, impacted/ displaced proximal humeral fracture Patient will be admitted to the hospital for orthopedics review, pain control Should it be deemed that she needs surgery, she is low to intermediate risk for a low risk surgical procedure She has a history of delirium for 2-3 days after her back surgery on September 2016, resolved with time. No reactions to anesthesia. No significant past medical history 04/06/16: Patient complains of pain in both knees. Right arm pain is improved. He has a right arm immobilizer on. She denies any chest pain or shortness of breath. No nausea, vomiting, diarrhea. Low grade temp this am. No urinary c/ o. He was seen by surgery who felt that her injuries were nonoperative. We are currently looking towards a rehabilitation facility placement. 04/07: Pain is improved medication. Patient has had no further fevers. Her Ayers catheter was removed. Urinalysis was dirty but this may have been due to a Ayers catheter. No elevated white blood cell count. No urinary complaints. We will continue to monitor for signs of urinary tract infection. She denies any chest pain or shortness of breath. No nausea, vomiting, diarrhea. No fevers or chills. 04/08: On day of discharge patient states she was doing well. Her pain was improved with medication. She continues to have low-grade fevers and her urinalysis showed numerous to count white blood cells as well as positive Proteus with sensitivities pending. She was started on Cipro. Did briefly have a Ayers catheter placed which was removed promptly. It is unclear if this is a catheter associated UTI or not. Patient will follow with orthopedic surgery. She will continue her Lovenox for DVT prophylaxis for at least 2 more weeks. He otherwise was doing reasonably well and deemed stable for discharge, we will follow up on urine culture. Hospital course: Ms. Milian is a 76 year old female - Time Spent with Patient Total time spent providing and/or coordinating discharge services: 33 minutes Greater than 30 minutes (33 min) - Constitutional Vitals: Temp Pulse Resp BP Pulse Ox 99.5 F 80 15 133/67 92 04/08/17 06:57 04/08/17 06:57 04/08/17 06:57 04/08/17 06:57 04/08/17 06:57 General appearance: Present: A&O X 3, pleasant, no acute distress - Head Head exam: Present: normocephalic Additional comments: frontal scalp ecchymosis - Extremities Exam Extremities exam: Present: warm, radial pulses palpable and symmetrical. Absent : calf tenderness (Right arm in a shoulder immobilizer, bilateral kneecaps tender to palpation), cyanotic, pedal edema - VTE Documentation of Mechanical Device: Graduated compression elastic hosiery
--- NOTE | 2017-04-08 10:28 | Physician Discharge Referral ---
ExtendedCare Referral Info Transfer To: rehab Provider in Charge after Transfer: PCP Institutional Level of Care: Skilled - Diagnosis (1) Closed head injury Status: Acute (2) Fall Status: Acute (3) Patella fracture Status: Acute (4) Proximal humeral fracture Status: Acute (5) Shoulder fracture, right Status: Acute (6) HLD (hyperlipidemia) Status: Chronic (7) HTN (hypertension) Status: Chronic (8) Fever Status: Acute (9) UTI (urinary tract infection) Status: Acute - Transfer Medications Prescriptions: HYDROcodone/Acet 5/325 mg [[place] 5-325 mg] 1 tab PO Q4HR PRN #30 tablet PRN Reason: Moderate Pain (4-6) Ciprofloxacin HCl [Cipro] 500 mg PO BID 3 Days #6 tablet Home Medications: Meloxicam [Mobic] 7.5 mg PO Q12H PRN 09/04/15 [History] Atorvastatin [Lipitor] 40 mg PO HS 04/05/17 [History] BuPROPion [Wellbutrin] 75 mg PO BID 04/05/17 [History] Metoprolol [Lopressor] 50 mg PO BID 04/05/17 [History] Sertraline [Zoloft] 100 mg PO DAILY 04/05/17 [History] Acetaminophen [Tylenol] 650 mg PO Q6HR PRN tablet 04/08/17 [Rx] Ciprofloxacin HCl [Cipro] 500 mg PO BID 3 Days #6 tablet 04/08/17 [Rx] Enoxaparin [Lovenox] 40 mg SQ 0600 syringe 04/08/17 [Rx] HYDROcodone/Acet 5/325 mg [[place] 5-325 mg] 1 tab PO Q4HR PRN #30 tablet [Rx] Sennosides/Docusate Sodium [Senna Plus] 1 each PO BID tablet 04/08/17 [Rx] Allergies/Adverse Reactions: 3 Allergy/AdvReac Type Severity Reaction Status Date / Time No Known Allergies Allergy Verified 01/04/15 11:28 - Respiratory Orders Smoking Cessation: Smoking cessation has been advised. For more information, call the [place] Tobacco Quit Line at 1-530-XNMR-NOW. - Advance Directives Code Status: Full Code - Rehabiliation Orders Rehab Potential: Good - Diet Orders Regular CERTIFICATION: I certify that the transfer of the above named patient to an Extended Care Facility is necessary for the continuing treatment of the diagnosis listed. The above information is true and accurate reflection of patient's current condition. Confidential - Redisclosure prohibited without a patient's written consent. [email or web address]
[2017-04-08 12:02] VITALS: BP 130/79
== END 2017-04-08 14:25 | DRG 563 ==
LOC: 3NENU 11:25 → EMEROO 11:25 → 3NENU 17:54
PROVIDERS: ADMIT Internal Medicine; ATTEND Hospitalist

== ENCOUNTER 2017-05-17 12:24 | Inpatient (IN) ==
--- NOTE | 2017-05-17 13:02 | Anesthesia Evaluation PreOp ---
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 History: Other (Depression) Other Medical History: Other (Breast CA) Anesthesia History: No Prior Anesthetic Complications, Past Anesthesia (Right Mastectomy, Right CTR) : No Alcohol Use: none Drug use: none Medications and Allergies Atorvastatin [Lipitor] 40 mg PO HS 04/05/17 [History] BuPROPion [Wellbutrin] 75 mg PO BID 04/05/17 [History] Metoprolol [Lopressor] 50 mg PO BID 04/05/17 [History] Sertraline [Zoloft] 100 mg PO DAILY 04/05/17 [History] Sennosides/Docusate Sodium [Senna Plus] 1 each PO BID tablet 04/08/17 [Rx] Acetaminophen [Tylenol] 650 mg PO Q6HR #0 tablet 04/21/17 [Rx] HYDROcodone/Acet 5/325 mg [[place] 5-325 mg] 1 tab PO Q4HR PRN 7 Days #28 tablet 04/21/17 [Rx] MOM Conc [MILK OF MAGNESIA conc] 10 ml PO DAILY PRN ud.[id number] 04/21/17 [Rx] Sennosides/Docusate Sodium [Senna Plus] 1 each PO DAILY tablet 04/21/17 [Rx] 3 Allergy/AdvReac Type Severity Reaction Status Date / Time No Known Allergies Allergy Verified 01/04/15 11:28 - Meds/Allergy Pre-op Review Medications Reviewed: Yes Allergies Reviewed: Yes Beta Blockers on Current Med List: Yes If Beta Blockers taken, Date/Time (Last Dose taken): 07:00 05/17/2017 Anesthesia Results - Labs Laboratory Tests 04/05/17 05/16/17 05/16/17 15:32 09:43 09:43 WBC 7.0 Hgb 13.3 Hct 42.4 Plt Count 165 INR 1.0 Sodium 140 Potassium 3.9 Chloride 105 Carbon Dioxide 29 BUN 23 Creatinine 0.68 - Imaging EKG: report reviewed (SB) Anesthesia Exam O2 Sat Height 1.65 m Height 1.65 m Weight 77.564 kg Weight 77.564 kg O2 Sat by Pulse Oximetry 96 Vital Signs Temp Pulse Resp BP Pulse Ox 98.7 F 61 18 123/64 96 05/17/17 12:39 05/17/17 12:39 05/17/17 12:39 05/17/17 12:39 05/17/17 12:39 NPO (# of Hours): > 8 hrs Pain Scale: 0 Pain Scale Used: Numeric (1 - 10) - HEENT Pupil (Motor): Pupils equal, EOMI Mallampati: II Teeth: Edentulous Denture Type: Upper: Complete, Lower: Complete Oral Opening: Greater than 3 - LINE SERVICE ATTENDANT LOC: Oriented LINE SERVICE ATTENDANT Motor: Normal RUE, Normal LUE, Normal RLE, Normal LLE, Normal Face LINE SERVICE ATTENDANT Sensory: Normal: RUE, LUE, RLE, LLE, Face - Cardiac Rhythm: Regular Murmur: None JVD: No Carotid Bruit: No - Pulmonary Breath Sounds: bilateral Clear Respiratory Effort: Symmetrical Anesthesia Assess/Plan ASA Score: 2 Modified Grover Scale for Level of Consciousness: Cooperative, oriented, and tranquil Anesthetic Plan: General, Regional Autologous Blood: Yes Monitoring Plan: Standard Monitors Recovery Plan: PACU
[2017-05-17] MEDS ORDERED: CeFAZolin Syr 2,000MG/20 ML 2,000 MG/20 ML SYRINGE IVPB ONE (13:40)
--- NOTE | 2017-05-17 13:41 | History & Physical Report ---
Date of Encounter: 05/17/17 Time of Encounter: 13:40 24 Hour HP Update - Instructions Instructions: If the History and Physical is less than 30 days old and was completed prior to A.M. admission and or procedure and has NOT been updated on calendar day of procedure please complete this update prior to performing procedure. - Update Patient reports changes in Medical Condition: No Changes in examination, assessment, or condition: No Changes in Medication: No Preop tests/diagnostics Reviewed: Yes Surgery Remains Indicated: Yes Consent for Planned Operative Procedure(s) Verified: Yes
[2017-05-17] MEDS ORDERED: Ringers Solution, Lactated 1,000 ML IVC SCH ×2 (13:45→17:17)
[2017-05-17] MEDS ORDERED: *HR* FentaNYL (PF) 100 MCG/2 ML VIAL ONE (13:58)
[2017-05-17] MEDS ORDERED: *HR* Midazolam HCl 2 MG/2 ML VIAL ONE (13:58)
[2017-05-17] MEDS ORDERED: *HR* Propofol 200 MG/20 ML VIAL IVP ONE ×2 (13:59→15:32)
[2017-05-17] MEDS ORDERED: *HR* Succinylcholine 200 MG/10 ML VIAL IVP ONE (14:00)
[2017-05-17] MEDS ORDERED: Lidocaine -MPF 2% 2 ML VIAL ONE (14:00)
[2017-05-17] MEDS ORDERED: Bupivacaine/Clonidine Syringe 1 EACH SYRINGE ONE (14:05)
[2017-05-17] MEDS ORDERED: EPHEDrine 50 MG/ML VIAL ONE ×2 (14:56→15:59)
[2017-05-17] MEDS ORDERED: Dexamethasone 4 MG/ML VIAL ONE (15:07)
[2017-05-17] MEDS ORDERED: *HR* Labetalol 20 MG/4 ML SYRINGE IVP PRN (15:08)
[2017-05-17] MEDS ORDERED: MORPHINE SUL Oral CONC 10 MG/0.5 ML ORAL.SYG SL PRN (15:08)
[2017-05-17] MEDS ORDERED: Ondansetron 4 MG/2 ML VIAL IVP ONE (15:08)
[2017-05-17] MEDS ORDERED: Acetaminophen IV 1,000 MG/100 ML INFUS..BTL IVPB ONE (15:08)
--- NOTE | 2017-05-17 15:12 | Anesthesia Procedures ---
Date of Encounter: 05/17/17 Time of Encounter: 14:20 Procedures: Anesthesia - Nerve Block Procedure Date: 05/17/17 Time: 14:20 Allergies/Adv Reactions: NKDA Pre-op Diagnosis: right proximal humerus fracture Surgical Procedure: right total shoulder Checklist: Correct Patient Identifier, Correct procedure, History checked Correct side: Right Blood Thinner: No Monitor Applied: EKG, BP, Pulse Oximetry Supplemental Oxygen via Nasal Cannula (L/min): 3 Sedation: Versed (mg): 2 Sedation: Fentanyl (mcg): 50 Indication: Post Op Analgesia Pre-op Neuro Deficits: No Block Type: Supraclavicular (with superficial cervical plexus) Catheter placed: No Sterile Technique: Yes Ultrasound used: Yes Anatomy identified: Yes Visual spread of Local: Yes Neuro Stimulation: Yes Nerve Stimulator Range: 0.2 - 0.4 mA Blood on Needle Aspiration: No Smooth Injection of Local: Yes Pain with Injection of Local: No Prep: Chlorhexadine Needle: 22 x 50 mm Stimuplex Local: 0.25% Bupivicaine w/Clonidine 20 mcg/cc Volume (cc): 30 Complications: None/effective block Vitals: VS stable pre, during and post procedure.
[2017-05-17] MEDS ORDERED: Tranexamic Acid 1,000 MG/10 ML VIAL ONE (15:36)
--- NOTE | 2017-05-17 16:56 | Physician Discharge Referral ---
- Diagnosis (1) Proximal humeral fracture Priority: Primary Status: Acute Prognosis: Good - Transfer Medications Home Medications: Atorvastatin [Lipitor] 40 mg PO HS 04/05/17 [History] BuPROPion [Wellbutrin] 75 mg PO BID 04/05/17 [History] Metoprolol [Lopressor] 50 mg PO BID 04/05/17 [History] Sertraline [Zoloft] 100 mg PO DAILY 04/05/17 [History] Sennosides/Docusate Sodium [Senna Plus] 1 each PO BID tablet 04/08/17 [Rx] Acetaminophen [Tylenol] 650 mg PO Q6HR #0 tablet 04/21/17 [Rx] HYDROcodone/Acet 5/325 mg [[place] 5-325 mg] 1 tab PO Q4HR PRN 7 Days #28 tablet 04/21/17 [Rx] MOM Conc [MILK OF MAGNESIA conc] 10 ml PO DAILY PRN [email or web address] 04/21/17 [Rx] Allergies/Adverse Reactions: 3 Allergy/AdvReac Type Severity Reaction Status Date / Time No Known Allergies Allergy Verified 05/17/17 13:32 - Respiratory Orders Smoking Cessation: Smoking cessation has been advised. For more information, call the [facility] Tobacco Quit Line at 1-542-UVGQ-NOW. - Mobility Orders Ambulate - Rehabiliation Orders Rehab Potential: Good Rehab Orders: ROM Exercises, Evaluation for Physical Therapy, Evaluation for Occupational Therapy Other: POST-OPERATIVE INSTRUCTIONS OPEN SHOULDER SURGERY Your recovery after shoulder surgery can take 6-9 months (and sometimes up to a year) to fully recover. It takes 12 weeks for the repair to fully heal, so it is very important to follow all precautions after surgery as directed. These instructions are intended to help you control swelling and pain, and to allow your shoulder and repaired tissues to heal. These instructions are a general guideline, because no patient or procedure is the same. If needed, your surgeon will give you further specific instructions. SLING You are required to wear your sling at all times (including sleeping) until your follow up appointment. This is necessary to protect your repair. You may remove it to work on your hand, wrist, and elbow exercises, for therapy, for getting dressed, and for hygiene. ICE It is recommended to ice your shoulder for 20 minutes per hour using an ice pack, Cryo Cuff if provided, or a bag of frozen peas. Ice can be especially helpful for the first several days after surgery. It can then be used as needed for pain and swelling. PAIN BLOCK/PAIN CATHETER The pain block/catheter is intended for pain relief and can last for up to 48 hours. During this time, you will not experience pain and will not be able to move your hand and fingers. It will give you the sensation of your arm being paralyzed. THIS IS TEMPORARY UNTIL THE BLOCK WEARS OFF. It is recommended that you start your pain medication even though you are getting pain relief from the block. It is more difficult to control the pain once the block wears off, then to keep a constant level of the pain medication in your system. For further questions regarding the pain catheter or block, please refer to the pain pump handout given to you from surgery or contact the anesthesia department as directed in the handout. MEDICATIONS You should resume all of your normal medications after shoulder surgery. If you are on blood thinners, these should be discussed with our team to decide on a date to resume them (typically the day after surgery). You will be given prescriptions for pain medications: o Fill the pain medications immediately and begin taking the medications before your nerve block wears off. You are encouraged to take the pain medications as directed on the prescription, and on a regular schedule for the first 3-4 days after surgery. o Do not let the pain get "ahead" of the pain medications since then it will be very difficult for you to get adequate pain control. o Even with the nerve block from surgery, it is recommended that you start on the pain medications after surgery to avoid the block wearing off without having pain medications in your system. o As the pain decreases, you may decrease the pain medication and switch to extra strength Tylenol if needed. o Avoid driving and consuming alcohol while taking pain medication. o Common side effects of pain medication are nausea, drowsiness, and constipation. Consider taking medication with food, and also consider using an [id number] stool softener. DRESSING You may shower and get your dressing wet 3 days after surgery, as long as there is no drainage coming from the incision. If the dressing is leaking, remove it and apply a clean, dry gauze to your shoulder. Avoid letting the shower stream hit the incisions directly until the sutures are removed. DO NOT scrub incisions or soak under water (bathtub, swimming pool or hot tub etc.) Pat the shoulder dry and then re-apply the dressing. If you have drainage more than 5 days after surgery, please contact our office for advice. SLEEPING You may find it more comfortable to sleep in a semi-reclined position (ie. recliner type chair or propped up on pillows) following shoulder surgery. You may return to sleeping in your bed whenever it feels comfortable to do so. EXERCISES You may come out of your sling 3-4 times/day to move your elbow, wrist, and hand and fingers. Your physical therapy appointment should be made for you. If therapy has not yet been arranged please call our office. FOLLOW UP APPOINTMENTS Your first follow up appointment is generally 10-14 days after surgery. Please refer to your preoperative packet for the date and time or contact the office after surgery to confirm this appointment. Wound care, pain management, and a review of your surgical procedure will be discussed at your first post-operative appointment Additional appointments are scheduled according to the type of surgery that you had and how you are progressing. PRECAUTIONS After anesthesia, rest for 24 hours. General anesthesia may cause a sore throat, jaw discomfort or muscle aches. These symptoms can last for one or two days. Do not drive, drink alcoholic beverages or make any important or legal decisions during this time. Avoid placing arm behind back (tucking in shirt, putting on belt), and do not lean on affected arm or use arm to push up from a seated or laying position. A good general rule is to keep your arm where you can see it. Keep your first few meals after surgery light and drink plenty of fluids, and some people are nauseas after surgery. Smoking increases your risk of infection and can delay healing times. If you smoke, you are encouraged to quit, cut back or at least quit smoking during the post-operative period. Pain medications are important for the first few days after surgery to treat postoperative pain. Addiction, tolerance, and side effects are a big concern. Decrease the pain medications as soon as you can. This is typically after the first few days. Most patients require narcotic pain medications only for the first few weeks after surgery (even large procedures). Prolonged use increases the risk of problems with these medications. NOTIFY THE OFFICE IMMEDIATELY, IF YOU DEVELOP ANY OF THE FOLLOWING: Increased redness or swelling over the incision area Incision area is warm or hot to touch Incision has foul smelling drainage Relentless pain, nausea, vomiting, bleeding or drainage Severe calf pain or chest pain You develop a fever greater than 101.4 more than 48 hours after surgery If you having an emergency that requires immediate attention go to the nearest emergency room or call 911. Please contact the office with any other questions or concerns that you may have regarding your surgery. - Diet Orders Regular CERTIFICATION: I certify that the transfer of the above named patient to an Extended Care Facility is necessary for the continuing treatment of the diagnosis listed. The above information is true and accurate reflection of patient's current condition. Confidential - Redisclosure prohibited without a patient's written consent.
--- NOTE | 2017-05-17 17:09 | Anesthesia Evaluation Post Op ---
Date of Encounter: 05/17/17 Time of Encounter: 17:08 - Vital Signs Vital Signs: Vital Signs/O2 Sat, Most Current Temp Pulse Resp BP Pulse Ox 97.9 F 76 16 125/66 96 05/17/17 16:45 05/17/17 16:55 05/17/17 16:55 05/17/17 16:55 05/17/17 16:55 - Lungs Lungs: Clear Ascult./Percussion - Airway Airway: Non-obstructed - Cardiovascular Regular Rate - Mental Status Mental Status: Alert & Oriented, Answers Appropriately - Pain Pain Scale: 0 Pain Scale used: Numeric (1 - 10) - Nausea Vomiting Nausea Vomiting: Not Present - Hydration Hydration: Ice chips, Has not voided - Discharge PostOp Status: Transfer Patient to floor
--- NOTE | 2017-05-17 17:11 | Orthopedic Operative Note ---
Date of procedure: 05/17/17 Pre-op diagnosis: R proximal humerus fracture Post-op diagnosis: same Procedure: 1. R reverse total shoulder arthroplasty 2. R shoulder ORIF greater tuberosity 3. R open biceps tenodesis Indications: This is a 76 yo F who had a fall and sustained a displaced three part right proximal humerus fracture approximately 1 month ago. Initially attempts were made to treat this nonoperatively however over the past several weeks she had significant displacement of the fracture with displacement of the greater tuberosity and head. The patient has been in therapy and unable to abduct or forward elevate both actively and passively with a mechanical block to her motion. Further treatment options including both operative and nonoperative management were discussed with the patient and she has elected for a right reverse shoulder replacement with tuberosity repair. The risks and benefits of the procedure were fully explained to the patient. These risks include, but are not limited to, the risk of infection, neurovascular injury, continued pain and stiffness of the shoulder, need for further surgery, DVT, PE , loss of limb and loss of life. The patient did understand all of these risks and wishes to proceed. Informed consent was then obtained. Operative procedure: The patient was brought back to the OR suite by the anesthesia staff. The patient was then placed supine on the operating table and all bony prominences were padded. The anesthesiologist then performed successful general anesthetic for the remainder of the case. The head, neck and airway were secured and protected by anesthesia. The bed was elevated about 30 degrees. The right upper extremity was then prepped and draped in the normal sterile orthopedic fashion and placed in the [place] arm guzmán. Preoperative antibiotics were then given prior to incision. A timeout was performed confirming the correct patient, site and side, procedure to be performed and any allergies. All were in agree and we did proceed. A standard deltopectoral approach was performed. We dissected down through the skin coagulating any bleeders were encountered. The cephalic vein was then identified and taken laterally with the deltoid. Adhesions were cleared from underneath the deltoid and a brown retractor was placed. The interval between the deltoid and pectoralis was then developed and kolbel retractor was placed. A Darrach retractor was then placed under the acromion. The biceps tendon was exposed and identified, and then released proximally into the rotator interval. Soft tissue tenodesis of the remaining biceps was then performed. The lateral border of the conjoined tendon was then identified and the fracture of the humeral head, and greater tuberosity fragments were identified. The lesser tuberosity was still attached to the shaft. A subscapularis peel was performed exposing the humeral head. There was a split in the humeral head, and there was significant healing in a malunited position to the shaft. A saw was used to create an osteotomy of the humeral head in 20 degrees of retroversion. The greater tuberosity was displaced posteriorly and superiorly. There was still attachment of the teres minor and 50% of the infraspinatus posteriorly. The supraspinatus was removed along with its attachment to the greater tuberosity. The remainder of the greater tuberosity was then tagged with FiberWire for later repair. Attention was then turned to the glenoid. The humerus was subluxed posteriorly and retractors were placed on the anterior and posterior aspects of the glenoid. A 360 degree release of the subscapularis was performed, and the axillary nerve was palpated and protected throughout the case. Labral debridement was then performed. A central guide pin was placed in the appropriate position on the glenoid. The central drill hole was made and the glenoid was then reamed in accordance with the aequalis reverse system. The baseplate was impacted in place and the remaining peripheral drill holes were drilled and the appropriate length screws were placed, in compression and locking. The glenosphere was then inserted and locked in to place with the locking screw. Attention was turned back to the humerus. The humerus was subluxed back anteriorly and the humerus was reamed and broached up to a size 2. A trial humeral stem and cup were placed. Trial reduction was then performed to make sure we could reduce the humerus. The size 2 aequalis stem was then press fit in place, using the greater tuberosity as a guide to our humeral height. We retrialed the humeral cup and tray until we had adequate stability. We also ensured the greater tuberosity could be reduced to the stem. The final size +6 tray and +6 poly was placed and the shoulder reduced. A niceloop fiberwire suture was then passed around the greater tuberosity and through the humeral shaft. The tuberosity was then held in place and tied back on to the humeral shaft. The process was repeated for a second fiberwire suture around the greater tuberosity, securing it to the shaft. The shoulder was then taken through ROM to ensure stability of the prosthesis and tuberosity repair. The wound was then copiously irrigated, the deltopectoral interval was tagged with 2 -0 surgilon, and the incision was closed with 2-0 stratafix deep and a running 3 -0 stratafix subcuticular. Sterile dressing was placed, the arm was placed in a sling and the patient was taken to the PACU in stable condition. There were no complications during the case. Post op plan: The patient will go into the reverse shoulder protocol. Implants: Tornier aequalis flex 2b ptc stem Flex high offset +6 tray, 36+6 mm poly 25 mm standard baseplate 36x25 mm lateralized +4 glenosphere Complications: none Anesthesia: GETA, regional Surgeon: Heriberto Crooks Was there an seed laboratory assistant present: No Estimated blood loss (cc): 200 Condition: stable Disposition: PACU
[2017-05-17] MEDS ORDERED: Vancomycin 1,000 MG VIAL IV ONE (17:17)
[2017-05-17] MEDS ORDERED: Ketorolac 15 MG/ML VIAL IVP PRN (17:17)
[2017-05-17] MEDS ORDERED: *HR* OxyCODONE Immed Rel 5 MG TABLET PO PRN (17:17)
[2017-05-17] MEDS ORDERED: MOM Conc 10 ML UD.LIQ PO PRN (17:17)
[2017-05-17] MEDS ORDERED: Temazepam 15 MG CAPSULE PO PRN (17:17)
[2017-05-17] MEDS ORDERED: Sennosides 8.6 MG TABLET PO PRN (17:17)
[2017-05-17] MEDS ORDERED: Naloxone 0.4 MG/ML INJ IVP PRN (17:17)
[2017-05-17] MEDS ORDERED: Acetaminophen 325 MG TABLET PO PRN (17:17)
[2017-05-17] MEDS ORDERED: *HR* HYDROcodone/Acet 5/325 mg TABLET PO PRN (17:17)
[2017-05-17] MEDS ORDERED: Ondansetron 4 MG/2 ML VIAL IVP PRN (17:17)
[2017-05-18] MEDS: CeFAZolin Premix DUPLEX 2,000 MG/50 ML BAG IVPB SCH ×2 (01:04→07:25)
[2017-05-18 06:12] LABS: Hematocrit 33.8 % (35.3-44.9)
[2017-05-18 06:14] LABS: Hemoglobin 10.8 g/dL (11.5-15.4)
[2017-05-18 06:45] VITALS: BP 133/74
--- NOTE | 2017-05-18 09:03 | Discharge Summary ---
Orders not resulted at time of discharge: Pending orders 05/19/17 04:00 Hemoglobin and Hematocrit [HEME] AM 0400 Date of Encounter: 05/18/17 Time of Encounter: 09:01 - Discharge Diagnosis (1) Proximal humeral fracture Priority: Primary Status: Acute Qualifiers: Encounter type: initial encounter Fracture type: closed Fracture morphology: unspecified fracture morphology Laterality: right Qualified Code (s): S42.201A - Unspecified fracture of upper end of right humerus, initial encounter for closed fracture - Hospital Course Hospital course: Ms. Milian is a 76 year old female who underwent a right reverse TSA for a proximal humerus fracture on 05/17/17. She was admitted following surgery for pain control and therapy. She did well with therapy and was able to be discharged in stable condition back to [facility] on 05/18/17. - Time Spent with Patient Total time spent providing and/or coordinating discharge services: - Discharge Medications Home Medications: Atorvastatin [Lipitor] 40 mg PO HS 04/05/17 [History] BuPROPion [Wellbutrin] 75 mg PO BID 04/05/17 [History] Metoprolol [Lopressor] 50 mg PO BID 04/05/17 [History] Sertraline [Zoloft] 100 mg PO DAILY 04/05/17 [History] Sennosides/Docusate Sodium [Senna Plus] 1 each PO BID tablet 04/08/17 [Rx] Acetaminophen [Tylenol] 650 mg PO Q6HR #0 tablet 04/21/17 [Rx] HYDROcodone/Acet 5/325 mg [[place] 5-325 mg] 1 tab PO Q4HR PRN 7 Days #28 tablet 04/21/17 [Rx] MOM Conc [MILK OF MAGNESIA conc] 10 ml PO DAILY PRN ud.liq 04/21/17 [Rx] Allergies/Adverse Reactions: 3 Allergy/AdvReac Type Severity Reaction Status Date / Time No Known Allergies Allergy Verified 05/17/17 13:32 Date of admission: 05/17/17 17:17 Primary care physician: Gilbert Sargent MD Consults: 05/17/17 17:17 Consult to Occupational Therapy [CONS] Routine Comment: post shoulder surgery Reason for Consult: post shoulder surgery Consult to Orthopedic Navigator [CONS] [CONS] Routine RT Post Op Consult [CONS] Routine 05/17/17 17:33 Consult to Customer Contact Specialist [CONS] Routine Reason for SW Consult: DC planning - VTE Documentation of Mechanical Device: Venous foot pump, device Labs on day of discharge: Labs from last 24 hours 05/18/17 06:01 Hgb 10.8 L D Hct 33.8 L - Impressions ITS Impressions Shoulder X-Ray 05/17/17 16:45 IMPRESSION: Status post right shoulder arthroplasty. No acute process. D/ / Kiana Seals MD / Kiana Seals MD Interpreting Provider: Kiana Seals MD - Patient Status Disposition: Transfer Inpatient Rehab Fac Condition: Good Functional capacity at discharge: independent ambulation Overall status at discharge: patient is progressing back to baseline - Discharge Instructions Follow Up With: Gilbert Sargent MD [Primary Care Provider] - Heriberto Crooks MD [Non-Partnered Physician] - (appt in packet ) Additional Instructions: Discharge Instructions: Total Shoulder Please call [facility] ([phone]), your Primary Care Physician, or report to the Emergency Room if you have any of the following symptoms: Nausea, vomiting, fever greater that 101.5, swelling, chest pain, shortness of breath, increased pain/redness/drainage/odor for your incision site, numbness/ tingling, or any other concerning symptoms. ACTIVITY: Always keep your arm in the sling. Do not raise your arm away from your body. Do not use your arm to help with getting in or out of bed. No weight bearing permitted. Only perform those exercises given to you by your therapist. MEDICATIONS: Upon discharge resume your home medications. Take all the medications as prescribed. Take a stool softener if taking narcotic pain medications. Stool softeners are only effective if you drink enough fluids. Drink 6-8 glass of water or fluids a day, unless this is not allowed for another health problem. Despite using stool softeners, if you haven't had a bowel movement in 3 days, please switch to a gentle laxative. Gentle laxatives are sold over the counter. You should have a bowel movement within 24 hours, if not call the office. You will be discharged from the hospital with a prescription for pain medication. You are encouraged to decrease the use of narcotic pain medication as tolerated. Should you require a refill, please call the office. [facility] prescribes narcotic pain medication for only 4-6 weeks after surgery. If you require pain medication beyond this time period, you may be referred to your Primary Care Physician or to the Pain Clinic for further evaluation. Plan ahead for refills on pain medication as many narcotics either need to be picked up at the office or mailed. It is best to call 48-72 hours in advance of needing a prescription refill so you don't run out of medication. To help control the post-operative pain, you may take NSAIDs (Aleve,Advil, Motrin, Ibuprofen, Naprosyn) or Tylenol as prescribed on the bottle in addition to the pain medication. WOUND CARE: Leave the dressing on for 7-10 days. You may change the dressing if it becomes saturated greater than 50%. Do not get the dressing wet at anytime. Wash your hands with antibacterial soap, rinse and dry prior to any wound care. If you have gloria the visiting nurse or rehab facility can remove the stapes 10-14 days after surgery and place steri-strips across the wound. Leave the steri-strips in place until they fall off on their own. You may let water from the shower run on top of the steri-strips. If you do not have a visiting nurse or rehab facility, you will need to return to the office at 10-14 days for the gloria to be removed. If you have itching or redness around the dressing call the office. FOLLOW-UP: Please follow up with your surgeon in the orthopedic clinic, as scheduled - Diet and Activity Activity: as per physical therapy Diet: advance to your usual diet
--- NOTE | 2017-05-18 09:07 | Orthopedics Progress Note ---
Date of Encounter: 05/18/17 Time of Encounter: 09:04 - Assessment and Plan (1) Proximal humeral fracture Current Visit: No Status: Acute Qualifiers: Encounter type: initial encounter Fracture type: closed Fracture morphology: unspecified fracture morphology Laterality: right Qualified Code (s): S42.201A - Unspecified fracture of upper end of right humerus, initial encounter for closed fracture Subjective Interval history: S: Doing well following R reverse TSA for fx. Block has worn off, has some shoulder pain but it is controlled. No N/T. No F/c/ns. O: AFVSS GEN: NAD, AAOx3 RUE: Dress c/d/i SILT ax/m/r/u wiggles fingers, 2+ RP A/P: POD#1 s/p R reverse TSA -Phase I PT -Continue sling -Ok for d/c today back to [facility] when passes PT Objective Vital signs: Vital Signs Temp Pulse Resp BP Pulse Ox 05/18/17 06:43 98.0 F 78 15 133/74 94 05/18/17 05:37 97.7 F 67 14 118/62 95 05/17/17 23:16 97.5 F L 79 18 103/63 94 05/17/17 20:45 97.8 F 80 16 110/64 95 05/17/17 20:13 97.8 F 77 16 107/60 94 05/17/17 19:49 92 05/17/17 19:36 97.8 F 80 16 118/56 92 05/17/17 18:33 97.6 F 69 16 140/63 93 05/17/17 17:56 97.7 F 68 16 125/61 100 05/17/17 17:25 97.7 F 68 16 124/79 97 05/17/17 17:15 97.6 F 67 16 121/73 96 05/17/17 17:05 65 17 119/71 96 05/17/17 16:55 76 16 125/66 96 05/17/17 16:45 97.9 F 72 14 137/75 100 05/17/17 14:10 60 16 146/74 96 05/17/17 12:39 98.7 F 61 18 123/64 96 Intake and Output 05/17/17 05/18/17 05/18/17 23:59 07:59 15:59 Intake Total 480 / 480 50 / 50 200 / 200 Output Total 400 / 400 Balance 80 / 80 50 / 50 200 / 200 Intake: IV Fluids 50 / 50 Ancef Premix DUPLEX 2,000 mg In 50 / 50 50 ml @ 100 mls/hr IVPB Q8HR MARY KAY Rx#:[id number] Oral 480 / 480 200 / 200 Output: Urine 200 / 200 Estimated Blood Loss 200 / 200 Other: Meal Dinner Breakfast Percent of Meal Consumed 100% 70% # Voids 1 1 # Urine Diapers 1 0 2 - Labs CBC & BMP: 05/18/17 06:01 Labs: Abnormal lab results Hgb 10.8 g/dL (11.5-15.4) L D 05/18/17 06:01 Hct 33.8 % (35.3-44.9) L 05/18/17 06:01 - VTE Documentation of Mechanical Device: Venous foot pump, device Consult Discharge Plan - Plan Additional Instructions: Discharge Instructions: Total Shoulder Please call [facility] ([phone]), your Primary Care Physician, or report to the Emergency Room if you have any of the following symptoms: Nausea, vomiting, fever greater that 101.5, swelling, chest pain, shortness of breath, increased pain/redness/drainage/odor for your incision site, numbness/ tingling, or any other concerning symptoms. ACTIVITY: Always keep your arm in the sling. Do not raise your arm away from your body. Do not use your arm to help with getting in or out of bed. No weight bearing permitted. Only perform those exercises given to you by your therapist. MEDICATIONS: Upon discharge resume your home medications. Take all the medications as prescribed. Take a stool softener if taking narcotic pain medications. Stool softeners are only effective if you drink enough fluids. Drink 6-8 glass of water or fluids a day, unless this is not allowed for another health problem. Despite using stool softeners, if you haven't had a bowel movement in 3 days, please switch to a gentle laxative. Gentle laxatives are sold over the counter. You should have a bowel movement within 24 hours, if not call the office. You will be discharged from the hospital with a prescription for pain medication. You are encouraged to decrease the use of narcotic pain medication as tolerated. Should you require a refill, please call the office. [facility] prescribes narcotic pain medication for only 4-6 weeks after surgery. If you require pain medication beyond this time period, you may be referred to your Primary Care Physician or to the Pain Clinic for further evaluation. Plan ahead for refills on pain medication as many narcotics either need to be picked up at the office or mailed. It is best to call 48-72 hours in advance of needing a prescription refill so you don't run out of medication. To help control the post-operative pain, you may take NSAIDs (Aleve,Advil, Motrin, Ibuprofen, Naprosyn) or Tylenol as prescribed on the bottle in addition to the pain medication. WOUND CARE: Leave the dressing on for 7-10 days. You may change the dressing if it becomes saturated greater than 50%. Do not get the dressing wet at anytime. Wash your hands with antibacterial soap, rinse and dry prior to any wound care. If you have gloria the visiting nurse or rehab facility can remove the stapes 10-14 days after surgery and place steri-strips across the wound. Leave the steri-strips in place until they fall off on their own. You may let water from the shower run on top of the steri-strips. If you do not have a visiting nurse or rehab facility, you will need to return to the office at 10-14 days for the gloria to be removed. If you have itching or redness around the dressing call the office. FOLLOW-UP: Please follow up with your surgeon in the orthopedic clinic, as scheduled Referrals: Gilbert Sargent MD [Primary Care Provider] - Heriberto Crooks MD [Non-Partnered Physician] - (appt in packet )
== END 2017-05-18 10:03 | DRG 483 ==
LOC: SAMDAY 12:24 → 3NENU 17:17
PROVIDERS: ADMIT Orthopaedic Surgery Sports Medicine; ATTEND Orthopaedic Surgery Sports Medicine